=== PATIENT | female | born 1960 | race Caucasian/White ===

== ENCOUNTER 2020-07-20 19:24 | Emergency (ER) | payer OTHER ==
[~2020-07-20] VITALS: Ht 154.9 cm; Wt 59.0 kg
[2020-07-20 20:26] LABS: ANION GAP 13 (6-22 (CALC)); BUN 34 mg/dL (7-17); BUN/CREATININE RATIO 62 (12-20 (CALC)); CARBON DIOXIDE 26 mmol/l (22-30); CHLORIDE 90 mmol/l (95-108); CREATININE 0.6 mg/dL (0.5-1.0); GFR > 60 ML/MIN (>=60 (CALC)); GFR FOR AFR.AMER. > 60 ML/MIN (>=60 (CALC)); POTASSIUM 3.8 mmol/l (3.5-5.1); SODIUM 125 mmol/l (137-146)
[2020-07-20 20:52] LABS: HEMATOCRIT 35.9 % (37.0-47.0); HEMOGLOBIN 11.4 g/dl (12.0-16.0); IMMATURE GRANULOCYTES 0.6 % (0.0-5.0); MEAN CELL VOLUME 86.5 fL CALC (80.0-100.0); MEAN CORPUSCULAR HGB 27.5 pG CALC (26.0-32.0); MEAN CORPUSCULAR HGB CONC 31.8 g/dL CAL (32.0-36.0); NEUT# 10.75 thou/uL (2.00-7.15); RED BLOOD COUNT 4.15 mill/uL (4.20-5.60); RED CELL DISTRI WIDTH 17.2 % (11.5-15.5)
[2020-07-20] MEDS ORDERED: DECADRON4 MG PO (23:44)
[2020-07-20] MEDS ORDERED: ASPIRIN 81 LOW81 MG PO (23:45)
[2020-07-20] MEDS ORDERED: LISINOPRIL10 MG PO (23:45)
[2020-07-20] MEDS ORDERED: ZOFRAN4 MG/TAB PO (23:46)
[2020-07-20] MEDS ORDERED: QC FOLIC ACID800 MCG PO (23:46)
[2020-07-20] MEDS ORDERED: MORPHINE SUL60 MG PO (23:47)
[2020-07-20] MEDS ORDERED: MORPHINE SULFAT45 MG PO (23:49)
[2020-07-20] MEDS ORDERED: XANAX0.25 MG PO (23:50)
[2020-07-20] MEDS ORDERED: OXYCODONE10 M1 PO (23:54)
[2020-07-20] MEDS ORDERED: MUCINEX600 MG PO (23:55)
[2020-07-20] MEDS ORDERED: CALCIUM CITRATE +D PO (23:56)
[2020-07-21 03:37] VITALS: BP 71/54
== END 2020-07-21 03:38 | disposition hospice, inpatient (51) ==
LOC: ED 19:24
PROVIDERS: Family Medicine
DX: C34.90 Malignant neoplasm of unspecified part of unspecified bronchus or lung (principal); C79.9 Secondary malignant neoplasm of unspecified site; E87.1 Hypo-osmolality and hyponatremia; J44.9 Chronic obstructive pulmonary disease, unspecified; Z51.5 Encounter for palliative care; Z66 Do not resuscitate